=== PATIENT | female | born 1985 | race Caucasian/White ===

== ENCOUNTER 2023-09-25 13:55 | Emergency (ER) | payer BC, OTHER ==
[~2023-09-25] VITALS: Ht 149.9 cm; Wt 54.4 kg
[2023-09-25 14:55] LABS: *BILIRUBIN,URIN NEGATIVE (NEGATIVE); *BLOOD, URINE NEGATIVE (NEGATIVE); *CLARITY,URINE CLEAR (CLEAR); *COLOR,URINE YELLOW (YELLOW); *KETONES,URINE 3+ (NEGATIVE); *PROTEIN,URINE NEGATIVE (NEGATIVE); *UROBILINOGEN,URINE 0.2 E.U./dl (NORMAL); LEUKOCYTE ESTERASE ,URINE NEGATIVE (NEGATIVE); NITRITE, URINE POSITIVE (NEGATIVE); PH,URINE 5.5 (5.0-8.0); UGLUCOSE NEGATIVE (NEGATIVE)
[2023-09-25] MEDS ORDERED: diphenhydrAMINE 50 MG/1 ML VIAL ONE (15:03)
[2023-09-25] MEDS ORDERED: METOCLOPRAMIDE HCL 10 MG/2 ML VIAL ONE (15:04)
[2023-09-25] MEDS: METOCLOPRAMIDE HCL 10 MG/2 ML VIAL IV ONE (15:09)
[2023-09-25] MEDS: IV NORMAL SALINE 1000 ML BAG IV ONE (15:09)
[2023-09-25] MEDS: diphenhydrAMINE 50 MG/1 ML VIAL IV ONE (15:10)
[2023-09-25 15:12] LABS: BASOPHILS % (AUTO) 0.7 % (0.0-2.0); EOSINOPHILS % (AUTO) 0.1 % (0.0-7.0); HEMATOCRIT 37.2 % (31.2-41.9); HEMOGLOBIN 11.6 g/dL (10.9-14.3); LYMPHOCYTES # (AUTO) 1.6 K/uL (0.8-4.8); LYMPHOCYTES % (AUTO) 22.5 % (20.5-51.5); MEAN CORPUSCULAR HEMOGLOBIN 22.1 uug (24.7-32.8); MEAN CORPUSCULAR HGB CONC 31 g/dL (32.3-35.6); MONOCYTES # (AUTO) 0.2 K/uL (0.1-1.30); MONOCYTES % (AUTO) 3.4 % (0.0-11.0); NEUTROPHILS % (AUTO) 73.3 % (38.5-71.5); PLATELET COUNT (AUTO) 399 K/uL (179-408); RED BLOOD CELL COUNT(AUTO) 5.24 MIL/uL (3.63-4.92); RED CELL DISTRIBUTION WIDTH 22.6 % (12.3-17.7); WHITE BLOOD COUNT (AUTO) 6.9 K/uL (3.8-11.8)
[2023-09-25] MEDS ORDERED: CEFEPIME HCL 1 G VIAL ONE (15:13)
[2023-09-25] MEDS: CEFEPIME HCL 2 G in IV DEXTROSE 5% 100 ML IV ONE (15:20)
[2023-09-25 15:21] LABS: *URINE HCG, QUAL NEGATIVE (NEGATIVE)
[2023-09-25 15:42] LABS: CALCIUM 8.8 mg/dL (8.5-10.1); CARBON DIOXIDE 14 mmol/L (21-32); CHLORIDE 98 mmol/L (98-107); CREATININE 0.7 mg/dL (0.6-1.3); GLUCOSE 52 mg/dL (74-106); POTASSIUM 4.5 mmol/L (3.5-5.1); SODIUM SERUM 138 mmol/L (136-145); UREA NITROGEN, BLOOD 11 mg/dL (7-18)
[2023-09-25 15:50] LABS: ALANINE AMINOTRANSFERASE 17 U/L (14-59); ALBUMIN 3.7 g/dL (3.4-5.0); ALKALINE PHOSPHATASE 100 U/L (50-136); ASPARTATE AMINOTRANSFERASE 35 U/L (15-37); BILIRUBIN,DIRECT 0.3 mg/dL (0.0-0.2); BILIRUBIN,TOTAL 1.3 mg/dL (0.2-1.0); TOTAL PROTEIN, SERUM 8.2 g/dL (6.4-8.2)
[2023-09-25 15:57] LABS: LACTIC ACID 4.1 mmol/L (0.4-2.0)
[2023-09-25 16:07] LABS: DIFFERENTIAL COMMENT 1
[2023-09-25 16:11] LABS: RBC,URINE 0-3 /HPF (0-3)
[2023-09-25 16:12] LABS: BACTERIA,URINE MODERATE /HPF (NONE SEEN); SQUAMOUS EPITHELIAL CELL,UR MODERATE /HPF (NONE SEEN)
[2023-09-25] MEDS ORDERED: SULF1TAB48 PO (17:17)
[2023-09-25 17:22] VITALS: BP 111/79; O2SAT 99
== END 2023-09-25 17:21 | disposition home or self-care (01) ==
LOC: ER 13:55
DX: A41.9 Sepsis, unspecified organism (principal); R65.21 Severe sepsis with septic shock; N10 Acute pyelonephritis; R10.2 Pelvic and perineal pain; F10.129 Alcohol abuse with intoxication, unspecified; Z79.899 Other long term (current) drug therapy; Z88.0 Allergy status to penicillin; Y90.0 Blood alcohol level of less than 20 mg/100 ml
CPT/HCPCS: 80076; 80048; 81001; 84703; 85025; 84145; 85730; 87040 ×2; 84484; 84702; 36415; 93005; 71045; 99291; 96365; 96375; 83605 ×2; 87086; 80320; J0692 ×2; J1200; J2765; J7040; A4606; A4663; G0480